=== PATIENT | female | born 1940 | race Two or more races ===

== ENCOUNTER 2018-02-05 11:03 | Emergency (ER) | payer OTHER ==
[~2018-02-05] VITALS: Ht 149.9 cm; Wt 56.7 kg
[~2018-02-05 11:03] MED LIST: EVISTA; PROSAC; SYNTROID; TENEX; TOPAMAX; ZETIA; [UNRECOGNIZED DRUG - OTHER]; [UNRECOGNIZED DRUG - OTHER]; [UNRECOGNIZED DRUG - OTHER]
[2018-02-05] MEDS ORDERED: COZAAR25 MG (11:16)
[2018-02-05] MEDS ORDERED: LISINOPRIL2.5 MG (11:16)
[2018-02-05] MEDS ORDERED: LYRICA50 MG (11:17)
[2018-02-05] MEDS ORDERED: FENOFIBRATE40 MG (11:17)
[2018-02-05] MEDS ORDERED: FAMOTIDINE20 MG (11:17)
[2018-02-05] MEDS ORDERED: LEVOTHYROXINE SO1 GM (11:17)
[2018-02-05] MEDS ORDERED: METFORMIN HCL500 MG (11:17)
[2018-02-05] MEDS ORDERED: JANUVIA50 MG (11:17)
[2018-02-05] MEDS ORDERED: ASPIR 8181 MG (11:18)
[2018-02-05] MEDS ORDERED: VITAMIN B COMP1 EAC1 (11:18)
[2018-02-05] MEDS ORDERED: FOLIC ACID1 MG (11:18)
== END 2018-02-05 19:46 | disposition home or self-care (01) ==
LOC: ER 11:03
DX: K57.32 Diverticulitis of large intestine without perforation or abscess without bleeding (principal)

== ENCOUNTER 2018-12-25 11:40 | Outpatient (CLI) | payer OTHER ==
[~2018-12-25 11:40] MED LIST changes: +ASPIR 8181 MG; +COZAAR25 MG; +FAMOTIDINE20 MG; +FENOFIBRATE40 MG; +FOLIC ACID1 MG; +JANUVIA50 MG; +LEVOTHYROXINE SO1 GM; +LISINOPRIL2.5 MG; +LYRICA50 MG; +METFORMIN HCL500 MG; +VITAMIN B COMP1 EAC1
== END 2018-12-25 14:30 | disposition home or self-care (01) ==
LOC: RAD 11:40
DX: J45.998 Other asthma (principal)

== ENCOUNTER 2020-04-13 14:10 | Outpatient (CLI) | payer OTHER | END 2020-04-13 14:17 | disposition home or self-care (01) | LOC: TOM 14:10 | PROVIDERS: ATTEND Specialist | DX: G54.4 Lumbosacral root disorders, not elsewhere classified (principal) ==

== ENCOUNTER 2021-04-01 12:21 | Outpatient (CLI) | payer OTHER | END 2021-04-01 12:44 | disposition home or self-care (01) | LOC: NUCLEAR 12:21 | PROVIDERS: ATTEND Student in an Organized Health Care Education/Training Program | DX: M81.0 Age-related osteoporosis without current pathological fracture (principal) ==

== ENCOUNTER 2021-12-28 09:09 | Outpatient (CLI) | payer OTHER | END 2021-12-28 09:13 | disposition home or self-care (01) | LOC: TOM 09:09 | PROVIDERS: ATTEND Specialist | DX: I69.30 Unspecified sequelae of cerebral infarction (principal); G46.4 Cerebellar stroke syndrome ==

== ENCOUNTER → 2021-12-28 | Outpatient (CLI) | payer OTHER | END | disposition home or self-care (01) | LOC: NUCLEAR 13:12 | PROVIDERS: ATTEND Specialist | DX: I69.30 Unspecified sequelae of cerebral infarction (principal); Z88.0 Allergy status to penicillin; Z88.1 Allergy status to other antibiotic agents ==

== ENCOUNTER 2022-07-12 15:03 | Outpatient (CLI) | payer OTHER | END 2022-07-12 15:09 | disposition home or self-care (01) | LOC: RAD 15:03 | PROVIDERS: ATTEND Specialist | DX: J45.998 Other asthma (principal) ==

== ENCOUNTER 2022-11-23 11:44 | Inpatient (IN) | payer OTHER ==
[~2022-11-23] VITALS: Ht 160 cm; Wt 680.4 kg
[2022-11-23] MEDS ORDERED: TRULICITY0.75 MG/0. SQ (11:58)
== END 2022-12-01 16:20 | disposition home or self-care (01) | DRG 194 ==
LOC: ER 11:44 → ICU-2 18:29 → ICU 11-25 01:10 → MEDJ 11-28 20:17
PROVIDERS: ADMIT Specialist; ATTEND Specialist
PROC: 3E0F7GC Introduction of Other Therapeutic Substance into Respiratory Tract, Via Natural or Artificial Opening (ICD-10-PCS; principal; 2022-11-23)
PROC: 4A12X4Z Monitoring of Cardiac Electrical Activity, External Approach (ICD-10-PCS; 2022-11-23)
PROC: B246ZZZ Ultrasonography of Right and Left Heart (ICD-10-PCS; 2022-11-23)
PROC: BB24ZZZ Computerized Tomography (CT Scan) of Bilateral Lungs (ICD-10-PCS; 2022-11-23)
PROC: 02HV33Z Insertion of Infusion Device into Superior Vena Cava, Percutaneous Approach (ICD-10-PCS; 2022-11-28)
DX: J18.9 Pneumonia, unspecified organism (principal); B37.49 Other urogenital candidiasis; I48.20 Chronic atrial fibrillation, unspecified; J91.8 Pleural effusion in other conditions classified elsewhere; I11.0 Hypertensive heart disease with heart failure; I50.9 Heart failure, unspecified; U09.9 Post COVID-19 condition, unspecified; E87.5 Hyperkalemia; E03.9 Hypothyroidism, unspecified; B96.1 Klebsiella pneumoniae [K. pneumoniae] as the cause of diseases classified elsewhere; B96.89 Other specified bacterial agents as the cause of diseases classified elsewhere; E11.22 Type 2 diabetes mellitus with diabetic chronic kidney disease; N18.9 Chronic kidney disease, unspecified; Z79.84 Long term (current) use of oral hypoglycemic drugs